=== PATIENT | female | born 1990 | race Caucasian/White ===

== ENCOUNTER 2017-10-10 13:15 | Inpatient (IN) | payer OTHER ==
[~2017-10-10] VITALS: Ht 160 cm; Wt 74.8 kg
[~2017-10-10 13:15] MED LIST: PRENATAL + DHA1 EAC1 PO
== END 2017-10-20 13:37 | disposition home or self-care (01) | DRG 775 ==
LOC: SURG-SUITE 10-18 04:53 → LDR 10-18 04:53 → SURG-SUITE 10-18 07:53
PROC: 0UQMXZZ Repair Vulva, External Approach (ICD-10-PCS; principal; 2017-10-18)
PROC: 10E0XZZ Delivery of Products of Conception, External Approach (ICD-10-PCS; 2017-10-18)
PROC: 4A1HXCZ Monitoring of Products of Conception, Cardiac Rate, External Approach (ICD-10-PCS; 2017-10-18)
PROC: 4A033R1 Measurement of Arterial Saturation, Peripheral, Percutaneous Approach (ICD-10-PCS; 2017-10-18)
DX: O71.82 Other specified trauma to perineum and vulva (principal); Z37.0 Single live birth; O99.820 Streptococcus B carrier state complicating pregnancy; Z3A.39 39 weeks gestation of pregnancy

== ENCOUNTER 2018-09-30 13:23 | Emergency (ER) | payer OTHER ==
[~2018-09-30] VITALS: Ht 160 cm; Wt 59.0 kg
[2018-09-30] MEDS ORDERED: OSEL75CA PO ×2 (18:51→18:52)
[2018-09-30] MEDS ORDERED: TESSALON PERLE100 M1 PO ×2 (18:51→18:52)
== END 2018-09-30 19:11 | disposition home or self-care (01) ==
LOC: ER 13:23
DX: J11.1 Influenza due to unidentified influenza virus with other respiratory manifestations (principal); R50.9 Fever, unspecified